=== PATIENT | female | born 1985 | race Caucasian/White ===

== ENCOUNTER 2017-03-22 21:52 | Emergency (ER) | payer OTHER ==
[~2017-03-22] VITALS: Ht 162.6 cm; Wt 54.6 kg
[2017-03-22 22:03] VITALS: BP 112/88
[2017-03-23] MEDS ORDERED: NORCO 7.5/321 TABLET PO (00:45)
== END 2017-03-23 01:21 | disposition home or self-care (01) ==
LOC: EME 21:52
DX: S05.01XA Injury of conjunctiva and corneal abrasion without foreign body, right eye, initial encounter (principal); T15.81XA Foreign body in other and multiple parts of external eye, right eye, initial encounter; W22.8XXA Striking against or struck by other objects, initial encounter; Y92.810 Car as the place of occurrence of the external cause; K50.90 Crohn's disease, unspecified, without complications; Z23 Encounter for immunization
CPT/HCPCS: 99281; 99284